=== PATIENT | female | born 1990 | race Hispanic/Latino ===

== ENCOUNTER 2017-12-09 05:15 | Emergency (ER) | payer OTHER ==
[2017-12-09] MEDS ORDERED: SODIUM CHLORIDE 0.9% 1000ML 1,000 ML IV ONE (05:51)
[2017-12-09] MEDS ORDERED: CLINDAMYCIN 600 MG/D5% WATER 50 ML IV ONE (05:52)
[2017-12-09] MEDS ORDERED: MORPHINE SULFATE 4 MG/1ML SYG ONE (05:53)
== END 2017-12-09 07:00 | disposition home or self-care (01) ==
LOC: EDH 05:15
DX: K04.7 Periapical abscess without sinus (principal); Z98.51 Tubal ligation status; Z98.890 Other specified postprocedural states
CPT/HCPCS: 96365; 96375; 99284; J2270; J3490; J7030